=== PATIENT | male | born 1970 | race Caucasian/White ===

== ENCOUNTER → 2020-08-26 | Outpatient (CLI) | payer BC | LOC: SJCVCIMAG 06-20 09:42 | PROVIDERS: ATTEND Internal Medicine Cardiovascular Disease | DX: E78.5 Hyperlipidemia, unspecified (principal); I49.1 Atrial premature depolarization; I10 Essential (primary) hypertension; Z98.61 Coronary angioplasty status ==

== ENCOUNTER → 2020-09-14 | Outpatient (CLI) | payer BC | LOC: SJCVCIMAG 08-30 06:39 | PROVIDERS: ATTEND Internal Medicine Cardiovascular Disease | DX: K76.89 Other specified diseases of liver (principal) ==

== ENCOUNTER → 2021-05-10 | Outpatient (CLI) | payer BC | LOC: SJCVCIMAG 07:57 | PROVIDERS: ATTEND Internal Medicine Cardiovascular Disease | DX: I10 Essential (primary) hypertension (principal); R10.9 Unspecified abdominal pain; K76.89 Other specified diseases of liver; I25.10 Atherosclerotic heart disease of native coronary artery without angina pectoris; E78.5 Hyperlipidemia, unspecified; Z95.828 Presence of other vascular implants and grafts ==